=== PATIENT | male | born 1970 | race Caucasian/White ===

== ENCOUNTER 2022-01-08 16:38 | Outpatient (REF) | payer BC, SELFPAY ==
[2022-01-08 19:39] LABS: Hemoglobin A1C 5.1 % (<5.7)
[2022-01-08 19:40] LABS: CREATININE 0.9 mg/dL (0.70-1.30); Calculated LDL 116 mg/dL (<100); Cholesterol 212 mg/dL (<200); HDL Cholesterol 77 mg/dL (40-60); Triglyceride 98 mg/dL (<150)
[2022-01-10 11:00] LABS: Hepatitis C Ab w Rflx HCV PCR Negative (Negative)
== END 2022-01-08 16:39 | disposition home or self-care (01) ==
LOC: NCHCN 16:38
PROVIDERS: PCP Family Medicine; Visit Provider Family Medicine
DX: Z00.00 Encounter for general adult medical examination without abnormal findings (principal); Z11.59 Encounter for screening for other viral diseases
CPT/HCPCS: 80061; 86803; 82565; 83036

== ENCOUNTER 2024-12-26 07:11 | Emergency (ER) | payer BC, SELFPAY ==
[2024-12-26 07:15] VITALS: BP 195/112; PULSE 80; RESP 16; TEMP 36.9; O2SAT 100
--- NOTE | 2024-12-26 07:34 | ED.GENADUL_ITS ---
Discharge Plan Disposition Patient Disposition: Home Discharge Details Clinical Impression: Elevated blood pressure reading with diagnosis of hypertension, Pharyngitis Primary Care Provider: None,None ED Provider: Ramirez Peña Home Meds and New Rx's Prescriptions: No Action No Known Home Meds Discharge Instructions Instructions: Sore throat in adults Additional Instructions: You are seen in the emergency department for your sore throat. Your rapid strep test was negative. You will receive a call a call if you are culture becomes positive. Please return to the emergency department as we discussed if you develop worsening sore throat difficulty breathing or cannot eat or drink. Otherwise please follow-up with primary care provider. You are blood pressure w as high. Please follow-up with your primary care provider and ask about your blood pressure. For your pain please take medications as follows: 1. Take acetaminophen (Tylenol), 1,000 mg (two 500 mg tabs) every 6 hours [2. Take ibuprofen (Advil), 400 mg every 6 hours.] HPI General Date/Time Provider Initiated Documentation: 12/26/24 07:23 . HPI Narrative: MDM This is an overall very well-appearing normothermic and not tachycardic 54-year-old male with sore throat most consistent with viral pharyngitis given negative oojaw-fj-[id number] strep test. No pain or proportion to suggest necrotizing soft tissue infection. Patient is not septic so I did not send lactate blood cultures nor treatment with antibiotics. Uvula midline so my suspicion is low for peritonsillar abscess. Good range of motion in neck so doubt retropharyngeal abscess. Nontoxic-appearing making my suspicion low for bacterial tracheitis. Handling secretions so doubt epiglottitis. No hypoxia no shortness of breath making my suspicion low for pneumonia. Patient received acetaminophen and dexamethasone in the emergency department. We discussed that he should return to emergency department if he developed worsening sore throat could not eat or drink or had any shortness of breath. Patient I discussed w hether or not to obtain viral testing. He reported that he was most concerned for strep. 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 I advised him to follow- up with his PCP concerning his elevated blood pressure without diagnosis of hypertension. He understood his return indications and was discharged with empiric trial of expectant outpatient management. HPI This is a 54-year-old male right emergency department via private vehicle with a sore throat. Patient reports that his daughter tested positive for strep earlier this week. He has had a scratchy and sore throat. He said that yesterday he had some body aches and was having some difficult time sleeping. He has been taking ibuprofen and Mucinex. He denies nausea vomiting chest pain shortness of breath. Exam General: Well-appearing in no acute distress speaking in complete sentences. Head: Normocephalic, atraumatic. Eye: Extraocular eye movements intact. No conjunctival injection. No scleral icterus. Ear, nose, mouth, throat: Mildly erythematous posterior oropharynx. No petechiae. Uvula midline. Normal voice, handling secretions normally. Neck: Trachea midline. Good range of motion in neck. Cardiovascular: Well-perfused distal extremities. Respiratory: Nonlabored respiration. Clear lungs bilaterally. Gastrointestinal: Nondistended abdomen. Musculoskeletal: No edema. Moving all 4 extremities spontaneously. Skin: Normal for age and race, grossly normal temperature and turgor. No acute rash. Neurologic: Alert and appropriate, no apparent acute deficits. GCS 15. Related Data Home Medications ?Medication ?Instructions ?Recorded ?Confirmed Unknown [No Known Home Meds] 10/12/24 12/26/24 Allergies Allergy/AdvReac Type Severity Reaction Status Date / Time No Known Allergies Allergy Verified 12/26/24 07:14 General Stated Complaint: Sorethroat JOAQUIN: 4 Course Vital Signs Vital signs: Vital Signs Temperature 36.9 C 12/26/24 07:15 Pulse 80 12/26/24 07:15 Respiratory Rate 16 12/26/24 07:15 Blood Pressure 195/112 H 12/26/24 07:15 Pulse Oximetry 100 12/26/24 07:15 Temperature 36.9 C 12/26/24 07:15 Temperature Source Oral 12/26/24 07:15 Pulse 80 12/26/24 07:15 Respiratory Rate 16 12/26/24 07:15 Blood Pressure 195/112 H 12/26/24 07:15 Blood Pressure Position Supine 12/26/24 07:15 Pulse Oximetry 100 12/26/24 07:15 Oxygen Delivery Method Room Air 12/26/24 07:15 Oxygen Flow Rate 0 12/26/24 07:15 Pain Level 8 12/26/24 07:15 Lab/Test Results Lab/Test Results: 12/26/24 07:13 Tonsil - Not Specified Group A Streptococcus Culture - Pending POC Strep Test-AGUSTÍN(Rapid) Start: 12/26/24 07:22 Freq: .Rapid Strep Test Status: Active Protocol: Document 12/26/24 07:22 MINNIE (Rec: 12/26/24 07:22 MINNIE [id number]) Strep test-AGUSTÍN(Rapid)-POC POC-Strep test-AGUSTÍN (Rapid) Negative POC-Strep test-AGUSTÍN (Rapid) Negative Medical Decision Making Quality:SDOH Health Related Social Needs: No Data to Display PFSH All Active Problems (Updated 12/26/24 @ 07:35 by Ramirez Peña MD) Pharyngitis (Acute) Elevated blood pressure reading with diagnosis of hypertension (Acute) Cubital tunnel syndrome on left (Acute) Lateral epicondylitis, left elbow (Acute) Medial epicondylitis of left elbow (Acute) Social History Smoking/Tobacco Use Status: Never Smoking risk assessment performed?: Yes Alcohol Intake: current Alcohol Intake frequency: 0-2 drinks per day Alcohol type: hard liquor Substance use type: does not use Housing: house Do you feel safe at home: Yes Do you feel safe in your relationship?: Yes PAWSS Have you Been Recently Intoxicated or Drunk Within the Last 30 days?: No Have you Ever Experienced Previous Episodes of Alcohol Withdrawal?: No Have you ever Experienced Withdrawal Seizures?: No Have you ever Experienced Delirium Tremens(DT)s?: No Have you ever undergone Alcohol Rehabilitation Treatment (i.e, inpt ot outpatient treatment programs)?: No Have you ever Experienced Blackouts?: No Have you ever Combined Alcohol with other Downers within the last 90 days?: No Have you ever Combined Alcohol with any other Substance of Abuse during the last 90 days?: No Positive Blood Alcohol level on Presentation? [PCS.BAL]: No Evidence of Increased Autonomic Activity (i.e. HR>120, tremor, sweating, agitation, nausea)?: No Result: 0
[2024-12-26] MEDS: Acetaminophen 500 MG TAB 1000 MG PO (07:44)
[2024-12-26] MEDS: Dexamethasone 4 MG TAB 8 MG PO (07:44)
[2024-12-26 07:46] VITALS: BP 194/113
--- NOTE | 2024-12-28 13:20 | W.ED.FU ---
Date of service: 12/28/24 Time of Service: 13:20 Follow Up Plan: Strep culture positive, sent amoxicillin to patient's pharmacy called him to contact to inform him.
--- NOTE | 2024-12-28 13:20 | NUR.NOTE ---
Pt's chart accessed to find final Strep culture result, and to see if pt was discharged with antibiotics, per pt's phone call. Nursing Note:
== END 2024-12-26 07:46 | disposition home or self-care (01) ==
PROVIDERS: Emergency Provider Emergency Medicine
DX: J02.0 Streptococcal pharyngitis (principal); R03.0 Elevated blood-pressure reading, without diagnosis of hypertension
CPT/HCPCS: 87880; 99283; 87081; J8540